=== PATIENT | female | born 1945 | race Caucasian/White ===

== ENCOUNTER 2017-06-25 20:55 | Emergency (ER) | payer MEDICARE, BC ==
[2017-06-25 22:26] LABS: AUTOMATED NEUTROPHIL # 7.2 TH/MM3 (1.8-7.7); BASOPHIL # 0.4 TH/MM3 (0-0.2); BASOPHIL % 4.1 % (0.0-2.0); EOSINOPHIL % 0.4 % (0.0-4.0); HEMATOCRIT 42.1 % (35.0-46.0); HEMOGLOBIN 14.1 GM/DL (11.6-15.3); LYMPHOCYTE # 1.2 TH/MM3 (1.0-4.8); MEAN CELL VOLUME 86.6 FL (80.0-100.0); MEAN CORPUSCULAR HEMOGLOBIN 29.1 PG (27.0-34.0); MEAN CORPUSCULAR HGB CONC 33.6 % (32.0-36.0); MEAN PLATELET VOLUME 7.8 FL (7.0-11.0); MONO % 5.1 % (0.0-8.0); MONOCYTE # 0.5 TH/MM3 (0-0.9); NEUT % 77.4 % (16.0-70.0); PLATELET COUNT 273 TH/MM3 (150-450); RED BLOOD COUNT 4.86 MIL/MM3 (4.00-5.30); RED CELL DISTRIBUTION WIDTH 12.7 % (11.6-17.2); WHITE BLOOD COUNT 9.4 TH/MM3 (4.0-11.0)
[2017-06-25 22:28] LABS: HEMO FLAGS DIFF FINAL
[2017-06-25] MEDS: SODIUM CHLORIDE 0.9% FLUSH 10 ML FLUSH IVF (22:30)
[2017-06-25] MEDS: ONDANSETRON HCL 4 MG/2 ML VIAL IV PUSH (22:30)
[2017-06-25 22:51] LABS: APTT (PATIENT) 24.5 SEC (24.3-30.1); PROTHROMBIN TIME - PATIENT 10.6 SEC (9.8-11.6)
[2017-06-25 22:56] LABS: CHLORIDE 106 MEQ/L (98-107); POTASSIUM 3.7 MEQ/L (3.5-5.1); SODIUM (NA) 140 MEQ/L (136-145)
[2017-06-25 23:00] LABS: ALBUMIN 3.9 GM/DL (3.4-5.0); ANION GAP 11 MEQ/L (5-15); BICARBONATE 23.3 MEQ/L (21.0-32.0); CALCIUM 9.1 MG/DL (8.5-10.1); GLUCOSE,RANDOM 120 MG/DL (74-106); LIPASE 134 U/L (73-393)
[2017-06-25 23:01] LABS: BLOOD UREA NITROGEN 10 MG/DL (7-18)
[2017-06-25 23:02] LABS: B-TYPE NATRIURETIC PEPTIDE 17 PG/ML (0-100)
[2017-06-25 23:03] LABS: ALT (GPT) 21 U/L (10-53); AST (GOT) 22 U/L (15-37); CREATININE 0.74 MG/DL (0.50-1.00); GLOMERULAR FILTRATION RATE 77 ML/MIN (>89)
[2017-06-25 23:05] LABS: TOTAL BILIRUBIN ADULT 0.5 MG/DL (0.2-1.0); TOTAL PROTEIN 7.8 GM/DL (6.4-8.2)
[2017-06-25 23:06] LABS: ALKALINE PHOSPHATASE 85 U/L (45-117); CREATINE KINASE 113 U/L (26-192)
[2017-06-25 23:08] LABS: TROPONIN I LESS THAN 0.02 NG/ML (0.02-0.05)
[2017-06-25 23:18] LABS: CKMB 1.2 NG/ML (0.5-3.6)
[2017-06-25] MEDS: IOHEXOL 350 MG/ML 10 ML VIAL (for RAD DIAG) IVCONTRAST (23:31)
[2017-06-26] MEDS: ONDANSETRON HCL 4 MG/2 ML VIAL IV PUSH (01:20)
== END 2017-06-26 01:41 | disposition home or self-care (01) ==
LOC: PHED 06-26 01:41
DX: J40 Bronchitis, not specified as acute or chronic (principal); T37.8X5A Adverse effect of other specified systemic anti-infectives and antiparasitics, initial encounter; E04.9 Nontoxic goiter, unspecified; R94.31 Abnormal electrocardiogram [ECG] [EKG]; E78.00 Pure hypercholesterolemia, unspecified; Y92.89 Other specified places as the place of occurrence of the external cause; Z79.899 Other long term (current) drug therapy
CPT/HCPCS: 71275; 80053; 82550; 82552; 83690; 83880; 84484; 85025; 85610; 85730; 93005; 96374; 96376; 99285-25